=== PATIENT | male | born 1990 | race Caucasian/White ===

== ENCOUNTER 2018-04-18 00:07 | Emergency (ER) | payer MEDICARE, MEDICAID ==
[~2018-04-18] VITALS: Ht 175.3 cm; Wt 81.0 kg
[~2018-04-18 00:07] MED LIST: OXYC1TAB7 PO
[2018-04-18 00:11] VITALS: BP 131/80
== END 2018-04-18 00:27 | disposition home or self-care (01) ==
LOC: ED 00:20
DX: F31.9 Bipolar disorder, unspecified (principal); Z76.0 Encounter for issue of repeat prescription
CPT/HCPCS: 99283

== ENCOUNTER 2018-08-25 08:50 | Emergency (ER) | payer MEDICARE, MEDICAID ==
[~2018-08-25] VITALS: Ht 172.7 cm; Wt 80.6 kg
[2018-08-25] MEDS ORDERED: ONDANSETRON ODT 4 MG PO ONE (09:30)
[2018-08-25 09:46] LABS: BASOPHILS # (AUTO) 0.03 x10^3/uL (0-0.1); BASOPHILS % (AUTO) 1 % (0-1); EOSINOPHILS % (AUTO) 4 % (1-7); LYMPHOCYTES # (AUTO) 1.19 x10^3/uL (1-3.4); LYMPHOCYTES % (AUTO) 23 % (22-44); MD NO; MEAN CORPUSCULAR HEMOGLOBIN 29.2 pg (27.5-34.5); MEAN CORPUSCULAR HGB CONC 34.6 g/dL (33.2-36.2); MEAN CORPUSCULAR VOLUME 84.6 fL (81-97); MEAN PLATELET VOLUME 8.5 fL (7.4-10.4); MONOCYTES # (AUTO) 0.36 x10^3/uL (0.2-0.8); MONOCYTES % (AUTO) 7 % (2-9); NEUTROPHILS # (AUTO) 3.38 x10^3/uL (1.8-6.8); NEUTROPHILS % (AUTO) 66 % (42-75); PLATELET COUNT 253 x10^3/uL (130-400); RED BLOOD COUNT 5.04 x10^6/uL (4.38-5.82); RED CELL DISTRIBUTION WIDTH 12.7 % (9.4-14.8)
[2018-08-25 09:57] LABS: ALANINE AMINOTRANSFERASE 24 U/L (12-78); ALBUMIN 4.1 g/dL (3.4-5.0); ANION GAP 6 mmol/L (5-15); CALCIUM 9.5 mg/dL (8.5-10.1); CHLORIDE 109 mmol/L (98-107); CREATININE 1.03 mg/dL (0.7-1.3)
[2018-08-25] MEDS ORDERED: ONDANSETRON ODT 4 MG ONE (09:58)
[2018-08-25 09:59] LABS: ALKALINE PHOSPHATASE 60 U/L (45-117); BILIRUBIN,TOTAL 0.5 mg/dL (0.2-1.0); TOTAL PROTEIN 7.5 g/dL (6.4-8.2)
[2018-08-25 11:22] VITALS: BP 130/76
== END 2018-08-25 11:24 | disposition home or self-care (01) ==
LOC: ED 09:30
DX: R10.84 Generalized abdominal pain (principal); R11.0 Nausea; R19.7 Diarrhea, unspecified; F31.9 Bipolar disorder, unspecified
CPT/HCPCS: 36415; 80053; 83690; 85025; 99284; Q0162

== ENCOUNTER 2019-02-08 11:45 | Emergency (ER) | payer MEDICAID, MEDICARE, OTHER ==
[~2019-02-08] VITALS: Ht 175.3 cm; Wt 86.0 kg
[2019-02-08 11:48] VITALS: BP 107/68
[2019-02-08] MEDS ORDERED: DIPH,PERTUSS(ACELL),TET VAC/PF 0.5 ML IM-VACC ONE ×2 (12:00→12:13)
[2019-02-08] MEDS ORDERED: LIDOCAINE-MPF 1%, 5ML INFIL ONE (12:00)
== END 2019-02-08 13:08 | disposition home or self-care (01) ==
LOC: ED 13:06
DX: S71.112A Laceration without foreign body, left thigh, initial encounter (principal); F31.9 Bipolar disorder, unspecified; Z72.9 Problem related to lifestyle, unspecified; F17.200 Nicotine dependence, unspecified, uncomplicated; W27.8XXA Contact with other nonpowered hand tool, initial encounter; Y93.89 Activity, other specified; Y92.69 Other specified industrial and construction area as the place of occurrence of the external cause; Y99.0 Civilian activity done for income or pay
CPT/HCPCS: 12032; 90471; 90715; 99284

== ENCOUNTER 2019-02-16 12:35 | Emergency (ER) | payer OTHER ==
[~2019-02-16] VITALS: Ht 172.7 cm; Wt 87.5 kg
[2019-02-16 13:01] VITALS: BP 109/70
== END 2019-02-16 13:24 | disposition home or self-care (01) ==
LOC: ED 13:00
DX: S71.112D Laceration without foreign body, left thigh, subsequent encounter (principal); F31.9 Bipolar disorder, unspecified; Z72.89 Other problems related to lifestyle; X58.XXXD Exposure to other specified factors, subsequent encounter
CPT/HCPCS: 99281

== ENCOUNTER 2019-06-26 22:49 | Emergency (ER) | payer MEDICARE, MEDICAID ==
[~2019-06-26] VITALS: Ht 167.6 cm; Wt 85.9 kg
[2019-06-26 22:52] VITALS: BP 113/77
== END 2019-06-27 02:19 | disposition home or self-care (01) ==
LOC: ED 23:59
DX: S93.491A Sprain of other ligament of right ankle, initial encounter (principal); F17.200 Nicotine dependence, unspecified, uncomplicated; F31.9 Bipolar disorder, unspecified; F99 Mental disorder, not otherwise specified; Z72.9 Problem related to lifestyle, unspecified; X58.XXXA Exposure to other specified factors, initial encounter; Y93.89 Activity, other specified; Y92.89 Other specified places as the place of occurrence of the external cause; Y99.8 Other external cause status
CPT/HCPCS: 99283

== ENCOUNTER 2020-09-01 15:28 | Emergency (ER) | payer MEDICARE, MEDICAID ==
[~2020-09-01] VITALS: Ht 172.7 cm; Wt 97.3 kg
[2020-09-01 15:57] VITALS: BP 113/75
--- NOTE | 2020-09-01 17:18 | NUR ---
PT ELOPPED PRIOR TO BEING SEEN IN ER ROOM. PT SIGNED PAPERWORK STATING HE KNOWS THE RISK OF LEAVING WITHOUT BE SEEN.
== END 2020-09-01 17:20 | disposition left against medical advice (07) ==
LOC: ED 17:14
DX: J06.9 Acute upper respiratory infection, unspecified (principal)
CPT/HCPCS: 99281

== ENCOUNTER 2021-01-03 06:51 | Emergency (ER) | payer MEDICARE, MEDICAID ==
[~2021-01-03] VITALS: Ht 172.7 cm; Wt 102.5 kg
[2021-01-03 06:53] VITALS: BP 128/86
--- NOTE | 2021-01-03 08:16 | NUR ---
Patient given discharge instructions and they have confirmed that they understand the instructions. Patient ambulatory with steady gait.
== END 2021-01-03 08:17 | disposition home or self-care (01) ==
LOC: ED 07:35
DX: J06.9 Acute upper respiratory infection, unspecified (principal); R50.9 Fever, unspecified; R00.0 Tachycardia, unspecified
CPT/HCPCS: 71045; 99283

== ENCOUNTER 2021-01-26 15:20 | Emergency (ER) | payer MEDICARE, MEDICAID ==
[~2021-01-26] VITALS: Ht 172.7 cm; Wt 100.4 kg
--- NOTE | 2021-01-26 16:21 | NUR ---
TASK RN: PT WALKED HERE WITH COMPLAINT OF COUGH, FEVER, BODY ACHES FOR THREE DAYS. PT STATES HE TOOK HIS TEMPERATURE AT HOME AND WAS 99.0F. PT RESTING IN [facility] MONITORING IN PLACE, ROBIN AT THIS TIME, AICHA.
[2021-01-26 17:15] VITALS: BP 140/91
[2021-01-26] MEDS ORDERED: ACETAMINOPHEN 500 MG TABLET PO ONE (17:30)
[2021-01-26] MEDS ORDERED: ACETAMINOPHEN 500 MG TABLET ONE (17:31)
== END 2021-01-26 17:45 | disposition home or self-care (01) ==
LOC: ED 17:27
DX: J06.9 Acute upper respiratory infection, unspecified (principal); Z20.822 Contact with and (suspected) exposure to COVID-19; R05 Cough; R00.0 Tachycardia, unspecified; F17.210 Nicotine dependence, cigarettes, uncomplicated
CPT/HCPCS: 71045; 99284; U0003